=== PATIENT | male | born 1940 | race Two or more races ===

== ENCOUNTER 2016-04-23 08:58 | Inpatient (IN) | payer MEDICARE, BC ==
[2016-04-23] VITALS (12 sets, daily range): BP systolic 110–132; BP diastolic 70–89
[~2016-04-23] VITALS: Ht 162.6 cm; Wt 108.9 kg
--- NOTE | 2016-04-23 08:18 | Anethesia Preoperative Eval ---
Anesthesia Pre-op PMH/ROS General Date of Evaluation: Apr 23, 2016 Anesthesiologist: Edis ASA Score: ASA 2 Mallampati Score Class I : Soft palate, uvula, fauces, pillars visible Class II: Soft palate, uvula, fauces visible Class III: Soft palate, base of uvula visible Class IV: Only hard plate visible Mallampati Classification: Class III Surgeon: Dusty Diagnosis: Enlarged prostate Surgical Procedure: TURP Anesthesia History: none Family History: no anesthesia problems Allergies: Coded Allergies: No Known Allergies (Unverified , 04/22/16) Medications: see eMAR Past Medical History Cardiovascular: Reports: HTN, Denies: CAD, [place], arrhythmia, other, valve dz Pulmonary: 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 Exam Physician Exam see chart Constitutional: NAD Cardiovascular: RRR Respiratory: CTA Airway Exam Mallampati Score: Class III MO: full ROM: limited Anesthesia Pre-op A/P Labs see chart Studies Pre-op Studies: EKG - sr Risk Assessment & Plan Assessment: ASA III Plan: GA Status Change Before Surgery: No Pre-Antibiotics Drug: Ancef 2g Given Within 1 Hr of Incision: Yes - 11 Time Given: 11:30 LUDIN MUNGUIA M.D. Apr 23, 2016 08:18
[~2016-04-23 08:58] MED LIST: ceFAZolin 1gm/50ml Premix 50 ML IV ONE
[2016-04-23] MEDS ORDERED: Propofol 10mg/ml 20ml IV ONE ×2 (10:04→11:20)
--- NOTE | 2016-04-23 11:08 | Pre-Procedure Note/Attestation ---
Pre-Procedure Note/Attestation Complete Prior to Procedure Planned Procedure: not applicable Procedure Narrative: TURP SP tube placement Indications for Procedure Pre-Operative Diagnosis: BPH Retention Attestation I attest that I discussed the nature of the procedure; its benefits; risks and complications; and alternatives (and the risks and benefits of such alternatives ), prior to the procedure, with the patient (or the patient's legal packaging sales representative). I attest that, if there was a reasonable possibility of needing a blood transfusion, the patient (or the patient's legal packaging sales representative) was given the [facility] standardized written summary, pursuant to the Serafin Alvin Blood Safety Act ([place] Health and Safety Code # 1645, as amended). I attest that I re-evaluated the patient just prior to the surgery and that there has been no change in the patient's H&P, except as documented below: Edis Montano MD Apr 23, 2016 11:08
--- NOTE | 2016-04-23 11:10 | Brief Operative Note ---
Immediate Post Operative Note Operative Note Pre-op Diagnosis: BPH Retention Procedure: TURP SP tube placement Post-op Diagnosis: same Post-op Diagnosis: same as pre-op Specimen: yes Complications: none Condition: stable Estimated Blood Loss: minimal Implant(s) used?: No Edis Montano MD Apr 23, 2016 11:09
[2016-04-23] MEDS ORDERED: HYDROmorphone 1mg/ml Carpuject IVP PRN (11:15)
[2016-04-23] MEDS ORDERED: Norco 5mg/325mg tab ORAL PRN (11:15)
[2016-04-23] MEDS ORDERED: NS Irrig 4000ml IRRIG ONE ×2 (11:20→11:22)
[2016-04-23] MEDS ORDERED: Midazolam 2mg/2ml Inj ONE (11:20)
[2016-04-23] MEDS ORDERED: fentaNYL 100 mcg/2 mL IV ONE (11:20)
[2016-04-23] MEDS ORDERED: Zemuron 50mg/5ml Inj IV ONE (11:20)
[2016-04-23] MEDS ORDERED: Sterile Water Irrig 1000ml IRRIG ONE (11:20)
[2016-04-23] MEDS ORDERED: NS Irrig 1000ml ONE (11:20)
[2016-04-23] MEDS ORDERED: Lidocaine 1% MPF 10mg/ml 5ml ONE (11:20)
[2016-04-23] MEDS ORDERED: LR 1000ml ONE (11:20)
--- NOTE | 2016-04-23 11:40 | Diagnostic Imaging Report ---
Indication: Chest Pain Comparison: None A single view chest radiograph was obtained. Findings: No definite infiltrate or pulmonary vascular congestion identified. Left hemidiaphragm slightly elevated. There is likely some mild atelectasis at the left lung base. The heart is enlarged. The aorta is mildly enlarged consistent with atherosclerotic vascular disease. The bones are osteopenic. Impression: No acute disease
[2016-04-23] MEDS ORDERED: LR 1000ml 1,000 ML IVLG SCH (11:50)
--- NOTE | 2016-04-23 11:51 | Immediate Post-Op Evaluation ---
Immediate Post-Op Evalulation Immediate Post-Op Evalulation Procedure: TURP Date of Evaluation: Apr 23, 2016 IV Fluids: 1.2L Blood Products: 0 Estimated Blood Loss: 100 Urinary Output: 0 Blood Pressure Systolic: 129 Blood Pressure Diastolic: 89 Pulse Rate: 93 Respiratory Rate: 10 O2 Sat by Pulse Oximetry: 100 Temperature (Fahrenheit): 97.3 Pain Score (1-10): 0 Nausea: No Vomiting: No Complications 0 Patient Status: awake, reacts, patent, none Hydration Status: adequate Drug: Ancef 2g Given Within 1 Hr of Incision: Yes Time Given: 11:30 LUDIN MUNGUIA M.D. Apr 23, 2016 11:51
[2016-04-23] MEDS ORDERED: fentaNYL 100 mcg/2 mL IV PRN (12:00)
[2016-04-23] MEDS ORDERED: Labetalol 5mg/ml 20ml vial IV PRN (12:00)
[2016-04-23] MEDS ORDERED: Hydromorphone 0.5mg/0.5ml inj IVP PRN (12:00)
[2016-04-23] MEDS ORDERED: DiphenhydrAMINE 50mg/ml Inj IVP PRN (12:00)
[2016-04-23] MEDS: cefOXitin Sod 1 GM in D5W 50 ML IV SCH ×2 (19:29→23:30)
[2016-04-23] MEDS: Docusate 100mg cap ORAL SCH (19:38)
[2016-04-23] MEDS: D5 1/2NS w/KCl 20mEq 1,000 ML IV SCH (20:49)
[2016-04-24] VITALS: BP 114/74
[2016-04-24] MEDS: D5 1/2NS w/KCl 20mEq 1,000 ML IV SCH ×3 (03:08→18:24)
[2016-04-24 04:00] VITALS: BP 117/73
[2016-04-24] MEDS: cefOXitin Sod 1 GM in D5W 50 ML IV SCH (05:30)
[2016-04-24 08:00] VITALS: BP 104/64
[2016-04-24 08:16] LABS: BASOPHILS % (AUTO) 0.2 % (0.0-2.0); LYMPHOCYTES % (AUTO) 12.8 % (20.0-45.0); MEAN CORPUSCULAR HEMOGLOBIN 26.8 PG (27.0-31.0); MEAN CORPUSCULAR HGB CONC 30.6 G/DL (32.0-36.0); MEAN CORPUSCULAR VOLUME 88 FL (80-99); MEAN PLATELET VOLUME 7.7 FL (6.5-10.1); MONOCYTES % (AUTO) 5.6 % (1.0-10.0); NEUTROPHILS % (AUTO) 81.4 % (45.0-75.0); PLATELET COUNT 219 K/UL (150-450); RED BLOOD COUNT 4.03 M/UL (4.70-6.10); RED CELL DISTRIBUTION WIDTH 12.6 % (11.6-14.8); WHITE BLOOD COUNT 11.7 K/UL (4.8-10.8)
[2016-04-24 08:35] LABS: ANION GAP 14 (5-15); CALCIUM 8.9 mg/dL (8.6-10.2); CARBON DIOXIDE 23 mEQ/L (20-30); CHLORIDE 106 mEQ/L (98-107); CREATININE 1.3 mg/dL (0.7-1.2); HEMOLYSIS 0; SODIUM 143 mEQ/L (135-145)
[2016-04-24] MEDS: Docusate 100mg cap ORAL SCH ×2 (08:37→18:24)
[2016-04-24 12:00] VITALS: BP 98/59
--- NOTE | 2016-04-24 12:49 | 48 Hour Post Anesthesia Eval ---
Post Anesthesia Evaluation Procedure: TURP Date of Evaluation: Apr 24, 2016 Time of Evaluation: 12:47 Blood Pressure Systolic: 148 0: 76 Pulse Rate: 72 Respiratory Rate: 22 Temperature (Fahrenheit): 97.6 O2 Sat by Pulse Oximetry: 98 Airway: patent Nausea: No Vomiting: No Pain Intensity: 2 Hydration Status: adequate Cardiopulmonary Status: stable Mental Status/LOC: patient returned to baseline Follow-up Care/Observations: n/a Post-Anesthesia Complications: none Follow-up care needed: N/A EVANGELINA SIMONS M.D. Apr 24, 2016 12:49
[2016-04-24 16:00] VITALS: BP 102/59
[2016-04-24 20:00] VITALS: BP 116/70
[2016-04-25] VITALS: BP 114/69
[2016-04-25 04:00] VITALS: BP_SYST 113; BP_SYST 120; BP_DIAS 67; BP_DIAS 68
[2016-04-25 08:00] VITALS: BP 114/64
[2016-04-25] MEDS: Docusate 100mg cap ORAL SCH ×2 (08:52→18:00)
[2016-04-25] MEDS: D5 1/2NS w/KCl 20mEq 1,000 ML IV SCH (09:00)
[2016-04-25] MEDS ORDERED: Milk of Magnesia 30ml Ud ORAL ONE (11:45)
[2016-04-25 12:00] VITALS: BP 118/69
[2016-04-25] MEDS ORDERED: Levofloxacin 500mg tab ORAL SCH (12:30)
[2016-04-25 16:00] VITALS: BP 126/80
[2016-04-25 17:00] VITALS: BP 123/70
[2016-04-25] MEDS ORDERED: NS Irrig 4000ml IRRIG ONE (18:20)
[2016-04-25] MEDS ORDERED: Tubing IV Secondary IV ONE (18:20)
--- NOTE | 2016-04-25 21:57 | Operative Note - Dictated ---
DATE OF OPERATION: 04/23/2016 PREOPERATIVE DIAGNOSES: 1. Benign prostatic hypertrophy. 2. Retention indwelling Holliday catheter. POSTOPERATIVE DIAGNOSES: 1. Benign prostatic hypertrophy. 2. Retention indwelling Holliday catheter. OPERATIONS: 1. Transurethral resection of the prostate. 2. Placement of the suprapubic tube. SURGEON: Edis Montano M.D. ANESTHESIA: General. FINDINGS: Obstructive prostate with neurogenic bladder. INDICATIONS FOR SURGERY: The patient was wearing a catheter for month and failed several voiding trials with urinary retention. Treatment options were explained to him in great length including all potential complications. He signed a consent. DESCRIPTION OF SURGERY: He is brought to the operating room, placed in lithotomy position. Prepped and draped in standard fashion. Using gloves and a retractor, bladder was filled and suprapubic tube was placed to the contralateral incision in the suprapubic area. It was secured and verified by cystoscopy. Balloon was inflated with 10 mL. Suprapubic tube was pulled back. After that, using bipolar resectoscope prostate was resected in the standard fashion preserving verumontanum. All the chips were evacuated with Ellik evacuator. There was no active bleeding. Fulguration and vaporization of the prostate was done in the end with a button electrode. Estimated blood loss was minimal. All the chips were evacuated. Holliday catheter was placed. CBI started through the suprapubic tube out through the Holliday catheter. Sponge count, instrument count was correct. Edis Montano M.D. DR: SRI JOB#: [id number] CC:
--- NOTE | 2016-04-28 14:08 | Discharge Summary ---
Discharge Summary Hospital Course Date of Admission Apr 23, 2016 at 08:58 Date of Discharge Apr 25, 2016 at 19:20 Admitting Diagnosis BPH urinary retention indwelling Holliday catheter Reason for Hospitalization: ELECTIVE SURGERY FOR TURP HPI Ced Lopez is a 76 year old male who was admitted on Apr 23, 2016 at 08: 58 for urinary retention, enlarged prostate patient was admitted for elective surgery Procedures s/p 04/23 TURP, placement of suprapubic catheter Hospital Course patient undergone elective surgery s/p 04/23 - TURP and placement of suprapubic catheter CBI initiated CBI continued until urine cleared pain management bowel regimen, had BM PT, ambulated tolerated diet, stable for dc. fup with urologist/surgery as specified by MD Discharge Medications Medication Profile: No Active Prescriptions or Reported Meds Discharge Condition Upon Discharge: improving, stable Discharge Disposition Patient was discharged to Home (01) Discharge Diagnoses: (1) BPH with urinary obstruction (2) Urinary retention due to benign prostatic hyperplasia (3) S/P TURP (4) Suprapubic catheter (5) Neurogenic bladder Kriss Dimas NP ([place]) Apr 28, 2016 14:07
== END 2016-04-25 19:20 | disposition home or self-care (01) | DRG 714 ==
LOC: SDSOVERFLO 08:58 → 3E 14:45
PROC: 0T9B30Z Drainage of Bladder with Drainage Device, Percutaneous Approach (ICD-10-PCS; principal; 2016-04-23 13:30)
PROC: 0VT08ZZ Resection of Prostate, Via Natural or Artificial Opening Endoscopic (ICD-10-PCS; principal; 2016-04-23 13:30)
DX: N40.1 Benign prostatic hyperplasia with lower urinary tract symptoms (principal); E11.22 Type 2 diabetes mellitus with diabetic chronic kidney disease; N31.9 Neuromuscular dysfunction of bladder, unspecified; R33.8 Other retention of urine; K21.9 Gastro-esophageal reflux disease without esophagitis; I12.9 Hypertensive chronic kidney disease with stage 1 through stage 4 chronic kidney disease, or unspecified chronic kidney disease; N18.9 Chronic kidney disease, unspecified
CPT/HCPCS: 36415; 71010; 80048; 82962; 85025; 86850; 86900; 86901; 87081; 94003; 94150; J2250; J2405